=== PATIENT | female | born 1990 | race Caucasian/White ===

== ENCOUNTER → 2016-06-19 | Outpatient (CLI) | payer OTHER ==
[~2016-06-19] MED LIST: PRENTAB26 PO
== END | disposition home or self-care (01) ==
LOC: C.PAPS 13:12
PROVIDERS: ATTEND Obstetrics & Gynecology
DX: Z12.4 Encounter for screening for malignant neoplasm of cervix (principal)

== ENCOUNTER → 2017-12-05 | Outpatient (CLI) | payer OTHER | END | disposition home or self-care (01) | LOC: C.LAB 15:47 | PROVIDERS: ATTEND Obstetrics & Gynecology | DX: Z32.01 Encounter for pregnancy test, result positive (principal) ==

== ENCOUNTER → 2017-12-13 | Outpatient (CLI) | payer OTHER ==
[2017-12-13 12:21] LABS: BASO % 0.5 %; BASO ABS # 0.06 K/uL (0-0.2); EOS % 1.2 %; EOS ABS # 0.16 K/uL (0-0.5); HEMATOCRIT 38.5 % (37-47); HEMOGLOBIN 13.1 g/dL (12.0-16.0); IG# 0.08 K/uL (0.00-0.02); LYMPH ABS # 2.06 K/uL (1.2-3.4); MEAN CELL VOLUME 82.8 fL (80-100); MEAN CORPUSCULAR HEMOGLOBIN 28.2 pg (25-34); MONO % 5.3 %; MONO ABS # 0.68 K/uL (0.11-0.59); NEUT % 76.4 %; NEUT ABS # 9.87 K/uL (1.4-6.5); PLATELET COUNT 309 K/uL (130-400); RED CELL DISTRIBUTION WIDTH CV 12.9 % (11.5-14.5); RED CELL DISTRIBUTION WIDTH SD 38.8 fL (36.4-46.3); WHITE BLOOD COUNT 12.91 K/uL (4.8-10.8)
== END | disposition home or self-care (01) ==
LOC: C.LAB1850 11:25
PROVIDERS: ATTEND Obstetrics & Gynecology
DX: Z34.81 Encounter for supervision of other normal pregnancy, first trimester (principal); Z86.39 Personal history of other endocrine, nutritional and metabolic disease

== ENCOUNTER 2018-07-28 07:59 | Inpatient (IN) ==
[2018-07-28] MEDS ORDERED: OXYTOCIN 30 UNITS/500 ML BAG IV PRN ×2 (08:32→08:39)
[2018-07-28] MEDS ORDERED: LACTATED RINGER'S 1,000 ML IV PRN ×3 (08:32→14:58)
--- NOTE | 2018-07-28 08:32 | History & Physical Report ---
Date of Service July 28, 2018 Assessment & Plan (1) Encounter for induction of labor: 28 y/o , [place] @ 40.1 weeks, A+, Ab-, GBS-, G/C-, Rubella immune, VDRL unreactive, presents for induction of labor. Patient elected to have induction of labor as her current daughter is having surgical procedure on 08/04/2018. - Plan for pitocin augmentation, arom as appropriate, epidural on request - anticipate History of Present Illness Chief Complaint: Induction of Labor Primary Care Provider: NO PCP Aurora Thompson is 28 y/o, , [place] @40.1 weeks, EDC of 07/27/2018 via [place]/[facility], who presents for induction of labor. Patient requested elective induction of labor as her daughter is having surgical procedure on 08/04/2018. She reports uncomplicated . She denies contractions, is feeling baby move, and denies blood/fluid loss from vagina. She reports no recent acute illness, no chest pains, no shortness of breath, no headaches, no nausea, no vomint, no diarrhea, no fevers/chills. She has had pre- care. Her last appointment in office was on 07/25/2018 with cervical exam of /-2 per review of EMR. She is A+, Ab-, GBS-, Rubella immune, VDRL/RPR nonreactive, G/C-, no history of abnormal paps or STDs. She had her annual flu vaccine on 01/13/18 and Tdap on 05/09/18. She reports no complications from previous which was delivered vaginally. Only current medications is vitamin. She reports her pain management plan is to "go as long as possible" without an epidural. She reports unremarkable family history for DM, HTN, Cancers. Her daughter 4 years of age with history of precocious puberty. Allergies Allergy/AdvReac Type Severity Reaction Status Date / Time clindamycin Allergy Mild Hives Verified 07/28/18 08:16 Home Medications Home Medications Medication Instructions Recorded Confirmed Type vit no.[id number] 1 tab PO DAILY 07/28/18 07/28/18 History [ Vitamin] Patient History Medical History Anxiety and depression H/O wisdom tooth extraction (~08/20/07) Migraine headache without aura (~08/16/10) Surgical History History of tonsillectomy (~08/18/97) Social History Preferred Language: [place] Communication Ability: Effective Web Pressman Required: No Beliefs That Will Affect Care: None Current Living Situation: Spouse and Family Other Information That Helps Us Care for You: No Feels Safe at Home: Yes Safety Concerns: Feels Safe At This Time Smoking Status: Never smoker Hx Alcohol Use: No Hx Substance Use: No OB History , daughter 4 year old uncomplicated 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, no abnormal paps Review of Systems All systems reviewed & are unremarkable except as noted in HPI & below Physical Exam Vital Signs (Past 24 Hours): Last Vital Signs Pulse 107 H 07/28/18 08:04 BP 143/83 H 07/28/18 08:04 Constitutional: WD/WN, vitals as above cooperative and comfortable Eyes: + anicteric sclerae and EOM intact bilaterally Neck: normal visual inspection and trachea midline Respiratory: normal respiratory effort, lungs clear to auscultation Cardiovascular: RRR, no murmur, no edema Gastrointestinal (Abdomen): Percussion/Palpation: abdomen nontender gravid uterus Musculoskeletal: Head/Neck/Chest: normocephalic and head atraumatic Skin: no rashes, warm and dry Neurologic: moves all extremities and awake Psychiatric: A+Ox3, euthymic affect Genitourinary: OB Exam Monitor Tracing: + external FHT monitor used and + category I Cervix exam performed by Dr. Monte, Attending Physician, and noted to be 2cm/50%/-2 Results & Data Laboratory Results Laboratory Results - last 24 hr 07/28/18 08:47 WBC 15.00 H RBC 4.47 Hgb 12.5 Hct 36.9 L MCV 82.6 MCH 28.0 MCHC 33.9 RDW Std Deviation 45.8 RDW Coeff of Shawn 15.2 H Plt Count 266 MPV 9.6 Code Status & VTE Plan Code Status Full Code Monitoring External Monitor Baseline 150 with moderate variability, accels present, no decels Tocodynamometer Mild irregular contractions Supervising Physician Co-Signing Physician Notes Resident Physician Supervision Note: I was present with Dr. Lynch during the history and exam. I discussed the case with the resident and agree with the findings and plan as documented in the note. Any exceptions or clarifications are listed here: Patient is a with iup at 40 1/7 who presents for elective induction. fetus category one. cx 2-3/50/-2. Irregular contractions. Plan pit for induction, arom when indicated. epidural on demand. anticipate . gbs neg Documented By: Gloria Monte MD, FACOG
[2018-07-28] MEDS: LACTATED RINGER'S 1,000 ML IV SCH ×2 (08:55→19:12)
[2018-07-28 09:00] LABS: Hematocrit (blood only) 36.9 % (37-47); Hemoglobin 12.5 g/dL (12.0-16.0); Mean Corpuscular Volume 82.6 fL (80-100); Mean Platelet Volume 9.6 fL (7.4-10.4); Platelet Count 266 K/uL (130-400); RDW Coefficient of Variation 15.2 % (11.5-14.5); RDW Standard Deviation 45.8 fL (36.4-46.3); Red Blood Count 4.47 M/uL (4.2-5.4)
[2018-07-28 09:02] LABS: Mean Corpuscular Hgb Conc 33.9 g/dL (32-36)
--- NOTE | 2018-07-28 14:07 | Labor Progress Brief Note ---
Date of Service July 28, 2018 Subjective Noting more painful contractions Assessment & Plan (1) Encounter for induction of labor: arom done, clear. continue pitocin, epidural if desires. fetus category one. anticipate . Physical Exam Vital Signs (Past 24 Hours): Last Vital Signs Temp 36.5 C 07/28/18 13:12 Pulse 111 H 07/28/18 13:12 Resp 20 07/28/18 13:12 BP 122/76 07/28/18 13:12 Constitutional: WD/WN, vitals as above Genitourinary: cx--75/-2 arom--clear toco--q2-3min efm--150 with mod variability, accels to 160s, no decels
[2018-07-28] MEDS ORDERED: BUPIVACAINE 0.25% 30 ML VIAL ONE (14:42)
[2018-07-28] MEDS ORDERED: fentaNYL citrate 100 MCG/2 ML VIAL ONE (14:42)
[2018-07-28] MEDS ORDERED: ePHEDrine sulfate 50 MG/ML AMP ONE (14:42)
[2018-07-28] MEDS ORDERED: fentaNYL 2MCG/ML ROPIV 1.25MG/ML 100 ML BAG EPI ONE (14:43)
[2018-07-28] MEDS ORDERED: ONDANSETRON INJ 2 MG/ML 2 ML VIAL IV PRN (14:58)
[2018-07-28] MEDS ORDERED: NALOXONE HCL 0.4 MG/1 ML VIAL/CARP IV PRN (14:58)
[2018-07-28] MEDS ORDERED: ePHEDrine sulfate 50 MG/ML AMP IV PRN (14:58)
[2018-07-28] MEDS ORDERED: DiphenhydrAMINE HCL 50 MG/ML VIAL IV PRN (14:58)
[2018-07-28] MEDS ORDERED: NALOXONE HCL 1 MG in SODIUM CHLORIDE 0.9% 1000ML 1,000 ML IV PRN (14:58)
[2018-07-28] MEDS ORDERED: NALBUPHINE HCL INJ 10 MG/ML AMP IV PRN (14:58)
[2018-07-28] MEDS ORDERED: fentaNYL 2MCG/ML ROPIV 1.25MG/ML 100 ML BAG EPI PRN (14:58)
--- NOTE | 2018-07-28 15:00 | Anesthesiology Consultation ---
Date of Service July 28, 2018 Assessment & Plan (1) Encounter for pre-operative examination: Chart Review Chart Review: Patient NOT seen in Pre Admission Testing and Acceptable Risk for Labor Epidural Consults Requested none History Height/Weight Height: 5 ft 4 in Weight: 102.149 kg Allergies Allergy/AdvReac Type Severity Reaction Status Date / Time clindamycin Allergy Mild Hives Verified 07/28/18 08:16 Medications Home Medications Medication Instructions Recorded Confirmed Last Taken vit no.[id number] 1 tab PO DAILY 07/28/18 07/28/18 07/27/18 19:00 [ Vitamin] Active Medications Generic Name Dose Route Start Last Admin Trade Name Freq PRN Reason Stop Dose Admin Lactated Ringer's 1,000 mls @ 999 mls/hr 07/28/18 08:32 07/28/18 14:52 Lr IV 08/27/18 08:31 999 mls/hr .Q1H1M PRN Administration (Pre-Anesthesia) Lactated Ringer's 1,000 mls @ 125 mls/hr 07/28/18 08:45 07/28/18 14:40 Lr IV 07/30/18 08:44 999 mls/hr .Q8H TRINI Infusion Oxytocin 30 units in 500 mls @ 18 mls/hr 07/28/18 08:39 07/28/18 14:30 Pitocin IV 07/30/18 08:38 1.08 units/hr .Q24H PRN 18 mls/hr Labor Induction/Augmentation Titration Protocol 1.08 UNITS/HR Past Medical History Medical History Anxiety and depression H/O wisdom tooth extraction (~08/20/07) Migraine headache without aura (~08/16/10) Past Surgical History Surgical History History of tonsillectomy (~08/18/97) Past Anesthesia History No Hx of Anesthesia Complications and No Family Hx of Anesthesia Complications History of PONV No Motion Sickness Screening History of Motion Sickness: No Social History Smoking Status: Never smoker Do You Dip or Chew Tobacco: No Hx Alcohol Use: No Hx Substance Use: No Exercise / Class Metabolic Activity II 4-5 Yardwork/Stairs/Walk up hill Physical Exam Vital Signs Last Vital Signs Temp 36.5 C 07/28/18 13:12 Pulse 90 07/28/18 14:12 Resp 20 07/28/18 13:12 BP 138/89 07/28/18 14:12 Testing Laboratory Results 07/28/18 08:47
--- NOTE | 2018-07-28 18:18 | Labor Progress Brief Note ---
Date of Service July 28, 2018 Subjective comfortable Assessment & Plan (1) Encounter for induction of labor: iupc placed, pit to >200mvus. fetus category one. Physical Exam Vital Signs (Past 24 Hours): Last Vital Signs Temp 36.9 C 07/28/18 17:02 Pulse 90 07/28/18 18:15 Resp 20 07/28/18 17:31 BP 127/66 07/28/18 17:46 Pulse Ox 98 07/28/18 18:15 Constitutional: WD/WN, vitals as above Genitourinary: cx--5/75/-2, no change iupc placed toco--q2-4min, pit at 18 efm--145 wtih mod variability, accels to 160s, no decels
--- NOTE | 2018-07-28 21:31 | Labor Progress Brief Note ---
Date of Service July 28, 2018 Subjective comfortable Assessment & Plan (1) Encounter for induction of labor: will d/c pit and allow a wash out and then restart pit and go up again. fetus category one. Physical Exam Vital Signs (Past 24 Hours): Last Vital Signs Temp 36.9 C 07/28/18 19:16 Pulse 95 H 07/28/18 21:17 Resp 18 07/28/18 19:16 BP 125/82 07/28/18 21:17 Pulse Ox 97 07/28/18 21:16 Genitourinary: cx--5/90/-2 copious amounts of clear fluid toco--q1-3min, p it at 24, exam during a contraction and not a lot of pressure on the cervix efm--150s with mod varaibility, small accels, no decels
--- NOTE | 2018-07-29 01:10 | Labor Progress Brief Note ---
Date of Service July 29, 2018 Subjective comfortable Assessment & Plan (1) Encounter for induction of labor: finally making change. fetus category 2 but overall reassuring. anticipate . Physical Exam Vital Signs (Past 24 Hours): Last Vital Signs Temp 36.7 C 07/28/18 23:17 Pulse 93 H 07/29/18 00:46 Resp 18 07/28/18 23:17 BP 126/73 07/29/18 00:18 Pulse Ox 97 07/29/18 00:46 Constitutional: WD/WN, vitals as above Genitourinary: cx--7-8/100/0 toco--q2-4min, pit at 10 efm--145 with mod variability, small accels, early decels with some contractions and just started having some variables with contractions.
[2018-07-29] MEDS ORDERED: ACETAMINOPHEN 325 MG TAB PO PRN (04:17)
--- NOTE | 2018-07-29 05:44 | Delivery Summary ---
DATE OF OPERATION: 07/29/2018 PREOPERATIVE DIAGNOSES: 1. Intrauterine at 40 and 2/7 weeks. 2. Induction for post-dates. DISCHARGE DIAGNOSES: Same. PROCEDURES: 1. Pitocin augmentation. 2. Amniotomy for clear fluid. 3. Intrauterine pressure catheter. 4. Normal spontaneous vaginal delivery. SURGEON: Gloria Monte MD ANESTHESIA: Epidural. ESTIMATED BLOOD LOSS: 300 mL. DESCRIPTION OF PROCEDURE: The patient presents at 40 and 2/7th weeks with a favorable cervix for induction for post-dates. She was admitted. Her cervix was initially 2-3 cm and 50%. She was started on Pitocin augmentation. When she was in a good contraction pattern, she underwent amniotomy at 4 cm dilated for clear fluid. She then underwent an epidural anesthetic. It did take her quite some time to get into active labor, but when she did she progressed with Pitocin augmentation. An IUPC was placed to better run Pitocin for contractions. She progressed to complete-complete and +2 station and pushed for approximately 1 hour to deliver a viable female in DAM[place] presentation. Nuchal cord x1 was reduced. The nose and mouth were bulb suctioned and the rest of the infant was then delivered without difficulty. The was placed on the maternal abdomen for drying and attention. The cord was clamped and cut and cord blood and segment were obtained. Placenta was delivered spontaneously intact with a 3-vessel cord. Cervix, sulci, rectum, and perineum were all intact. No laceration was noted. Estimated blood loss 300 mL. Hemostasis with dilute Pitocin and fundal massage. Apgars were 8 and 9. Mother and baby doing well at the end of the delivery. I attest to the content of the Intraoperative Record and any orders documented therein. Any exception s are noted below.
[2018-07-29] MEDS ORDERED: SUPERCREAM 0.870% 15 GM JAR EXT PRN (06:04)
[2018-07-29] MEDS ORDERED: OXYTOCIN 30 UNITS/500 ML BAG IV PRN (06:04)
[2018-07-29] MEDS ORDERED: DIPHTHERIA/TETANUS/PERTUSSIS 0.5 ML SYR/VIAL IM ONE (06:04)
[2018-07-29] MEDS ORDERED: BENZOCAINE 20% AER SPR 82.5 GM CAN EXT PRN (06:04)
[2018-07-29] MEDS ORDERED: ACETAMINOPHEN W/CODEINE #3 1 TAB PO PRN (06:04)
[2018-07-29] MEDS ORDERED: HYDROCORTISONE ACETATE 25 MG SUPP PR PRN (06:04)
--- NOTE | 2018-07-29 06:13 | Anesthesia Procedure Note ---
Date of Service July 29, 2018 Anesthesia Post Epidural Note Vital Signs Vital Signs: Temp Pulse Resp BP Pulse Ox 36.9 C 112 H 18 140/86 89 L 07/29/18 05:49 07/29/18 06:04 07/29/18 05:49 07/29/18 06:04 07/29/18 03:51 Pain Intensity Abdomen: Pain Intensity: 0 Notes Mental Status: alert / awake / arousable Patient Amnestic to Procedure: No Nausea / Vomiting: adequately controlled Pain: adequately controlled Airway Patency, RR, SpO2: stable & adequate BP & HR: stable & adequate Hydration State: stable & adequate Neuraxial Anesthesia: was administered and sensory block is resolving Anesthetic Complications: no major complications apparent and Pt Satisfied with anesthetic care Epidural: Removed without complications and With tip intact
[2018-07-29] MEDS: IBUPROFEN 600 MG TAB PO PRN ×2 (07:07→15:48)
[2018-07-29] MEDS: DOCUSATE SODIUM 100 MG CAP PO SCH ×2 (08:18→21:36)
[2018-07-29] MEDS: PRENATAL VITAMIN 1 TAB PO SCH (08:18)
[2018-07-30 06:54] LABS: Hematocrit (blood only) 32.3 % (37-47); Hemoglobin 10.6 g/dL (12.0-16.0); Mean Corpuscular Hgb Conc 32.8 g/dL (32-36); Mean Corpuscular Volume 83.7 fL (80-100); Mean Platelet Volume 10.1 fL (7.4-10.4); Platelet Count 221 K/uL (130-400); RDW Coefficient of Variation 15.5 % (11.5-14.5); RDW Standard Deviation 47.4 fL (36.4-46.3); Red Blood Count 3.86 M/uL (4.2-5.4); White Blood Count 13.61 K/uL (4.8-10.8)
--- NOTE | 2018-07-30 07:43 | Obstetrical Progress Note ---
Date of Service <Isra Lynch DO - Last Filed: 07/30/18 07:43> July 30, 2018 Assessment & Plan <Isra Lynch DO - Last Filed: 07/30/18 07:43> (1) Encounter for induction of labor: 28 y/o , [place] @ 40.1 weeks, A+, Ab-, GBS-, G/C-, Rubella immune, VDRL unreactive, presented for induction of labor. Patient elected to have induction of labor as her current daughter is having surgical procedure on 08/04/2018. - on 07/29/18 - discharged instructions reviewed with patient - continue routine post- care until discharge home (2) Spontaneous vaginal delivery: - on 07/29/18 Subjective <Isra Lynch DO - Last Filed: 07/30/18 07:43> Ambulation: ambulating normally Voiding: no voiding problems Passing Gas:: Yes Diet Tolerance:: regular diet Lochia:: Small Feeding Type:: breast feeding Aurora had no acute events overnight. She denies chest pain, shortness of breath, fever, chills, nausea, vomiting, diarrhea, headache. She is requesting discharge home today. Physical Exam <Isra Lynch DO - Last Filed: 07/30/18 07:43> Vital Signs (Past 24 Hours) Last Vital Signs Temp 36.6 C 07/30/18 03:50 Pulse 97 H 07/30/18 03:50 Resp 18 07/30/18 03:50 BP 134/83 07/30/18 03:50 Pulse Ox 98 07/29/18 07:30 Constitutional WD/WN, vitals as above cooperative and comfortable Eyes + anicteric sclerae and EOM intact bilaterally Neck normal visual inspection and trachea midline Respiratory normal respiratory effort, lungs clear to auscultation Cardiovascular RRR, no murmur, no edema Gastrointestinal (Abdomen) Percussion/Palpation: abdomen nontender uterine fundus is firm, non-tender, 3 cm below umbilicus Musculoskeletal Head/Neck/Chest: normocephalic and head atraumatic Skin no rashes, warm and dry Neurologic moves all extremities and awake Psychiatric A+Ox3, euthymic affect Results & Data <DO Carl Pedroza Last Filed: 07/30/18 07:43> Laboratory Results Laboratory Results - last 24 hr 07/30/18 06:36 WBC 13.61 H RBC 3.86 L Hgb 10.6 L Hct 32.3 L MCV 83.7 MCH 27.5 MCHC 32.8 RDW Std Deviation 47.4 H RDW Coeff of Shawn 15.5 H Plt Count 221 MPV 10.1 Medications Administered Benzocaine (Dermoplast Pain Relieving [place]) 1 appln EXT PRN PRN PRN Reason: Perineal Discomfort Stop: 08/28/18 06:03 Last Admin: 07/29/18 07:09 Dose: 82.5 appln Documented by: [id number] Cocaine HCl (Supercream 0.870%) 1 gm EXT BID PRN PRN Reason: Hemorrhoidal Inflammation Stop: 08/12/18 06:03 Last Admin: 07/29/18 07:08 Dose: 15 gm Documented by: [id number] Docusate Sodium (Colace) 100 mg PO BID [facility] Stop: 08/28/18 08:59 Last Admin: 07/29/18 21:36 Dose: Not Given Documented by: [id number] Admin: 07/29/18 08:18 Dose: 100 mg Documented by: [id number] Ibuprofen (Motrin) 600 mg PO Q4H PRN PRN Reason: Pain/MARIE/Cramping/Fever Stop: 08/28/18 04:16 Last Admin: 07/29/18 15:48 Dose: 600 mg Documented by: [id number] Admin: 07/29/18 07:07 Dose: 600 mg Documented by: [id number] Prenat Multivit/Wait Staff/Iron/Folic Ac ( Vitamin) 1 tab PO QAM [facility] Stop: 08/28/18 08:59 Last Admin: 07/29/18 08:18 Dose: 1 tab Documented by: [id number] <Tyrell Hong MD - Last Filed: 08/04/18 15:05> Co-Signing Physician Notes Patient seen and agree with the above findings and plan
[2018-07-30] MEDS: DOCUSATE SODIUM 100 MG CAP PO SCH (08:59)
[2018-07-30] MEDS: PRENATAL VITAMIN 1 TAB PO SCH (08:59)
[2018-07-30] MEDS ORDERED: BISACODYL 5 MG TABEC PO SCH (20:00)
[2018-07-31] MEDS ORDERED: BISACODYL 10 MG SUPP PR PRN (09:00)
== END 2018-07-30 14:00 | disposition home or self-care (01) | DRG 807 ==
LOC: 4S1 07:59 → 4S2 07-29 07:30
DX: Z3A.40 40 weeks gestation of pregnancy; Z37.0 Single live birth; O69.81X0 Labor and delivery complicated by cord around neck, without compression, not applicable or unspecified; O48.0 Post-term pregnancy